=== PATIENT | male | born 1995 | race African-American/Black ===

== ENCOUNTER 2024-09-02 23:16 | Emergency (ER) | payer SELFPAY ==
[~2024-09-02] VITALS: Ht 182.9 cm; Wt 60.0 kg
[2024-09-02 23:18] VITALS: O2SAT 98
[2024-09-03] MEDS ORDERED: LIDOCAINE HCL/PF 1% 10 MG/ML 5ML VIAL INFIL ONE
[2024-09-03] MEDS ORDERED: BACITRACIN ZINC OINT UDPKT TOP ONE
[2024-09-03] MEDS ORDERED: TETANUS, DIPHTHERIA, PERTUSSIS VAC/PF 0.5ML (>10YR OLD) IM ONE
[2024-09-03] MEDS: TETANUS, DIPHTHERIA, PERTUSSIS VAC/PF 0.5ML (>10YR OLD) IM ONE (02:58)
[2024-09-03] MEDS ORDERED: BACITRACIN ZINC OINT UDPKT TOP NR (03:00)
[2024-09-03] MEDS ORDERED: LIDOCAINE HCL/PF 1% 10 MG/ML 5ML VIAL INFIL NR (03:00)
[2024-09-03 06:00] VITALS: BP 130/89; PULSE 81; RESP 16; TEMP 36.7; O2SAT 100
== END 2024-09-03 06:15 | disposition home or self-care (01) ==
LOC: ER 23:16
DX: S01.112A Laceration without foreign body of left eyelid and periocular area, initial encounter (principal); S09.90XA Unspecified injury of head, initial encounter; W01.0XXA Fall on same level from slipping, tripping and stumbling without subsequent striking against object, initial encounter; Y93.89 Activity, other specified; Y92.89 Other specified places as the place of occurrence of the external cause; Y99.8 Other external cause status
CPT/HCPCS: 99285; 12011; 70450; 90715; 90471; J2003; 96372